=== PATIENT | female | born 1955 | race Caucasian/White ===

== ENCOUNTER 2018-01-20 16:36 | Emergency (ER) | payer MEDICAID ==
[~2018-01-20] VITALS: Ht 157.5 cm; Wt 77.3 kg
[~2018-01-20 16:36] MED LIST: ASPI-1264 PO; ATOR20TA PO; LANTUS SQ; METF500T PO; NICO-687 TP; NO HOME MEDS
[2018-01-20 17:42] LABS: BASOPHILS % (AUTO) 0.4 % (0-1); EOSINOPHILS # (AUTO) 0.3 X10'3 (0-0.9); EOSINOPHILS % (AUTO) 2.7 % (0-6); HEMATOCRIT 48.3 % (35.0-45.0); HEMOGLOBIN 16.6 g/dl (12.0-16.0); LYMPHOCYTES # (AUTO) 2.7 X10'3 (1.1-4.8); LYMPHOCYTES % (AUTO) 27.2 % (21-51); MEAN CORPUSCULAR HEMOGLOBIN 27.3 PG (27.0-31.0); MEAN CORPUSCULAR HGB CONC 34.3 % (33.0-36.5); MEAN CORPUSCULAR VOLUME 79.5 FL (78-98); MEAN PLATELET VOLUME 9.3 FL (7.4-10.4); MONOCYTES # (AUTO) 0.4 X10'3 (0-0.9); MONOCYTES % (AUTO) 4.4 % (2-12); NEUTROPHILS # (AUTO) 6.5 X10'3 (1.8-7.7); NEUTROPHILS % (AUTO) 65.3 % (42-75); PLATELET COUNT 215 X10'3 (140-440); RED BLOOD COUNT 6.08 X10'6 (4.20-5.60); RED CELL DISTRIBUTION WIDTH 15.3 % (11.5-14.5)
[2018-01-20 17:44] LABS: CLARITY,URINE CLEAR (Clear); COLOR,URINE YELLOW (Yellow); GLUCOSE, URINE >=1000 mg/dl (Neg); KETONES,URINE NEGATIVE (Neg); LEUKOCYTE ESTERASE ,URINE SMALL (Neg); NITRITES, URINE NEGATIVE (Neg); OCCULT BLOOD,URINE NEGATIVE (Neg); PH,URINE 6.5 (4.8-8.0); PROTEIN,URINE NEGATIVE (Neg); UROBILINOGEN,URINE 0.2 E.U/dL (0.2-1.0)
[2018-01-20 17:50] LABS: UA COLLECTION TYPE CLN CATCH MIDSTREAM
[2018-01-20 17:52] LABS: BACTERIA,URINE FEW /HPF (Neg); MUCUS STRANDS NONE SEEN /LPF (Neg); RBC,URINE 0-2 /HPF (0-2); SQUAMOUS EPITHELIAL CELL,UR FEW /LPF (FEW)
[2018-01-20 17:53] LABS: PARTIAL THROMBOPLASTIN TIME 26 SECONDS (22-32); PROTHROMBIN TIME 9.9 SECONDS (9.0-12.0)
[2018-01-20 18:02] LABS: ALANINE AMINOTRANSFERASE 24 U/L (12-78); ALBUMIN 3.9 G/DL (3.4-5.0); ALBUMIN/GLOBULIN RATIO 0.8 (1.1-1.5); ALKALINE PHOSPHATASE 139 IU/L (46-116); ANION GAP 12 (8-16); ASPARTATE AMINO TRANSFERASE 10 U/L (10-37); BILIRUBIN,TOTAL 0.5 MG/DL (0.1-1.0); BLOOD UREA NITROGEN 18 MG/DL (7-18); BUN/CREATININE RATIO 23.7 (6.6-38.0); CALCIUM 9.3 MG/DL (8.5-10.1); CHLORIDE 102 MMOL/L (99-107); CREATININE 0.76 MG/DL (0.40-0.90); GLUCOSE 258 MG/DL (70-104); POTASSIUM 3.7 MMOL/L (3.5-5.1); SODIUM 138 MMOL/L (135-145); TOTAL CARBON DIOXIDE 23.8 MMOL/L (24-32); TOTAL PROTEIN 8.6 G/DL (6.4-8.2); eGFR 77 ML/MIN
[2018-01-20] MEDS ORDERED: normal saline 1000ML IV soln IVB ONE (18:10)
[2018-01-20] MEDS ORDERED: CEPH500C5 PO (18:17)
[2018-01-20 19:23] VITALS: BP 133/80
== END 2018-01-20 19:30 | disposition home or self-care (01) ==
LOC: ER 16:37
DX: E86.0 Dehydration (principal); N39.0 Urinary tract infection, site not specified; E11.65 Type 2 diabetes mellitus with hyperglycemia; M79.641 Pain in right hand; I25.2 Old myocardial infarction; Z86.73 Personal history of transient ischemic attack (TIA), and cerebral infarction without residual deficits; F17.210 Nicotine dependence, cigarettes, uncomplicated; Z79.82 Long term (current) use of aspirin; Z79.84 Long term (current) use of oral hypoglycemic drugs; Z79.4 Long term (current) use of insulin; Z79.899 Other long term (current) drug therapy
CPT/HCPCS: 36415; 70450; 71045; 80053; 81001; 85025; 85610; 85730; 87088; 93005; 96360; 99285; J7030

== ENCOUNTER 2019-07-03 10:42 | Inpatient (IN) | payer MEDICAID ==
[~2019-07-03] VITALS: Ht 162.6 cm; Wt 85.0 kg
[2019-07-03 11:23] LABS: BASOPHILS # (AUTO) 0.1 X10'3 (0-0.2); BASOPHILS % (AUTO) 0.9 % (0-1); EOSINOPHILS # (AUTO) 0.1 X10'3 (0-0.9); EOSINOPHILS % (AUTO) 1.9 % (0-6); HEMATOCRIT 44.1 % (35.0-45.0); HEMOGLOBIN 14.8 g/dl (12.0-16.0); LYMPHOCYTES # (AUTO) 1.9 X10'3 (1.1-4.8); LYMPHOCYTES % (AUTO) 27.3 % (21-51); MEAN CORPUSCULAR HEMOGLOBIN 27.5 PG (27.0-31.0); MEAN CORPUSCULAR HGB CONC 33.5 g/dL (33.0-36.5); MEAN CORPUSCULAR VOLUME 82.1 FL (78-98); MONOCYTES # (AUTO) 0.4 X10'3 (0-0.9); MONOCYTES % (AUTO) 5.2 % (2-12); NEUTROPHILS # (AUTO) 4.5 X10'3 (1.8-7.7); NEUTROPHILS % (AUTO) 64.7 % (42-75); PLATELET COUNT 190 X10'3 (140-440); RED BLOOD COUNT 5.38 X10'6 (4.20-5.60); RED CELL DISTRIBUTION WIDTH 14.1 % (11.5-14.5)
[2019-07-03 11:39] LABS: ALANINE AMINOTRANSFERASE 18 U/L (12-78); ALBUMIN 3.5 G/DL (3.4-5.0); ALBUMIN/GLOBULIN RATIO 0.9 (1.1-1.5); ALKALINE PHOSPHATASE 137 IU/L (46-116); ANION GAP 9 (8-16); ASPARTATE AMINO TRANSFERASE 8 U/L (10-37); BILIRUBIN,TOTAL 0.5 MG/DL (0.1-1.0); BLOOD UREA NITROGEN 20 MG/DL (7-18); BUN/CREATININE RATIO 30.8 (6.6-38.0); CHLORIDE 104 MMOL/L (99-107); CREATININE 0.65 MG/DL (0.40-0.90); GLUCOSE 356 MG/DL (70-104); MAGNESIUM 1.7 MG/DL (1.5-2.4); POTASSIUM 4.2 MMOL/L (3.5-5.1); SODIUM 139 MMOL/L (135-145); TOTAL PROTEIN 7.6 G/DL (6.4-8.2); eGFR > 90 ML/MIN
[2019-07-03 11:43] LABS: PARTIAL THROMBOPLASTIN TIME 26 SECONDS (22-32)
[2019-07-03 12:36] LABS: C-REACTIVE PROTEIN 0.15 MG/DL (0.0-0.5)
[2019-07-03] MEDS ORDERED: clindamycin 600mg/D5W 50ml 50 ML IV ONE (13:45)
[2019-07-03] MEDS ORDERED: normal saline 1000ML IV soln IVB ONE (13:45)
[2019-07-03 14:56] LABS: CLARITY,URINE CLOUDY (Clear); COLOR,URINE YELLOW (Yellow); GLUCOSE, URINE >=1000 mg/dl (Neg); KETONES,URINE NEGATIVE (Neg); LEUKOCYTE ESTERASE ,URINE SMALL (Neg); NITRITES, URINE NEGATIVE (Neg); OCCULT BLOOD,URINE TRACE-INTACT (Neg); PROTEIN,URINE NEGATIVE (Neg); UROBILINOGEN,URINE 0.2 E.U/dL (0.2-1.0)
[2019-07-03 15:04] LABS: UA COLLECTION TYPE VOIDED
[2019-07-03 15:05] LABS: SQUAMOUS EPITHELIAL CELL,UR MODERATE /LPF (FEW)
[2019-07-03 15:06] LABS: BACTERIA,URINE 1+ /HPF (Neg); RBC,URINE 0-2 /HPF (0-2); WBC CLUMPS,URINE MODERATE /HPF (NEGATIVE); WBC,URINE 50-100 /HPF (0-4)
[2019-07-03] MEDS ORDERED: NO HOME MEDS (15:07)
[2019-07-03] MEDS ORDERED: potassium CL 10mEq/100ml bag 100 ML IV PRN ×2 (15:45)
[2019-07-03] MEDS ORDERED: ondansetron/PF 4mg/2ml inj IV PRN (15:45)
[2019-07-03] MEDS ORDERED: potassium Cl 20 mEq SR tablet PO PRN ×2 (15:45)
[2019-07-03] MEDS ORDERED: magnesium Cl slow-release 64mg tablet PO PRN (15:45)
[2019-07-03] MEDS ORDERED: acetaminophen 325mg tablet PO PRN (15:45)
[2019-07-03] MEDS ORDERED: magnesium 4gm in 100ml NS 100 ML IV PRN (15:45)
[2019-07-03] MEDS ORDERED: magnesium 2GM in 50ml NS 50 ML IV PRN (15:45)
[2019-07-03] MEDS ORDERED: cyclobenzaprine 10mg tablet PO SCH (16:00)
--- NOTE | 2019-07-03 16:16 | NUR ---
REC'D CALL FROM DR CABRERA REQUESTING CM AND SS ASSESSMENT OF PATIENT IN ED. PATIENT HAS BEEN UNABLE TO CARE FOR SELF AND HAS WOUND TO HAND WHICH WILL REQUIRES WOUND CARE AND ABX. CM AND SS IN TO SPEAK WITH PATIENT. DAUGHTER, PATRIA, IS AT BEDSIDE. PER PATRIA, PATIENT IS LIVING WITH HER SON AND DISABLED DAUGHTER. SHE HAD BEEN IN LTC AT [facility] IN THE PAST BUT DECIDED IT WAS NOT FOR HER AND LEFT ABOUT 2 YEARS AGO. SHE HAS LIVED WITH VARIOUS FAMILY MEMBERS. HOWEVER, IT HAS BEEN INCREASINLY DIFFICULT TO CARE FOR HERSELF. PATIENT DOES NOT WANT LTC. SHE IS AGREEABLE TO SNF FOR SHORT TERM CARE WHILE HER FAMILY MAKES ARRANGEMENTS SUCH ESTABLISHING A PCP AT [facility] AND [facility]. [facility] PAPERWORK HAS ALREADY BEEN COMPLETED AND THEY HAVE A FRIEND, VANESSA, WHO IS WILLING TO START [facility] CAREGIVER AT ANY TIME. SS SPOKE WITH VANESSA ON THE PHONE AND CONFIRMED. SS TO ASSIST WITH [facility] PAPERWORK SO FAMILY WILL HAVE CAREGIVER TO ASSIST. CM SENT REFERRAL TO [facility] FOR STC WITH D/C PLAN HOME WITH SON AND [facility] CAREGIVER. DISCUSSED WITH PATIENT/DAUGHTER THAT IF STC PLACEMENT WAS NOT FOUND THAT PATIENT MUST RETURN HOME WITH FAMILY WITH COMMUNITY RESOURCES WHEN STABLE. INFORMED DR CABRERA. INFORMED HOSPITALIST, DR HUFF, OF D/C PLANS. WILL CONTINUE TO ASSIST WITH D/C NEEDS ALONG WITH [employer] IRRIGATOR.
[2019-07-03] MEDS: normal saline 1000ml 1,000 ML IV SCH (16:47)
--- NOTE | 2019-07-03 17:19 | NUR ---
I have received report from SELVIN Gama and had the opportunity to ask questions and assume patient care.
[2019-07-03 17:50] VITALS: BP 188/88
--- NOTE | 2019-07-03 18:09 | NUR ---
Page to Dr Harris MESSAGE: [facility] [id number] re new admit Chaney 353 BP 188/88 HR 119
--- NOTE | 2019-07-03 18:15 | NUR ---
Patient in room [facility]. I have received report from Susi MONTALVO and had the opportunity to ask questions and assume patient care.
--- NOTE | 2019-07-03 18:19 | NUR ---
Problems reprioritized. Patient report given, questions answered & plan of care reviewed with SELVIN Lowe.
[2019-07-03 20:00] VITALS: BP 169/82
[2019-07-03] MEDS: clindamycin 300mg/D5W 50mL 50 ML IV SCH (21:32)
[2019-07-03] MEDS ORDERED: dextrose 50%-water 50ml dispensing syringe IV PRN ×2 (22:55)
[2019-07-03] MEDS ORDERED: MESSAGE TO PHARMACY PO ONE (22:55)
[2019-07-03] MEDS ORDERED: glucagon, human recombinant 1mg kit SUBCUT PRN (22:55)
[2019-07-03] MEDS ORDERED: dextrose ORAL solution 15 GM/59 ML bottle PO PRN (22:55)
[2019-07-03] MEDS: insulin Lispro (HumaLOG) vial - multi-dose SQ SCH (23:59)
[2019-07-04] VITALS: BP 127/67
[2019-07-04] MEDS ORDERED: insulin glargine (Lantus) pen - multi-dose SQ ONE ×2
[2019-07-04] MEDS: clindamycin 300mg/D5W 50mL 50 ML IV SCH ×4 (02:24→19:49)
[2019-07-04 06:18] LABS: BASOPHILS % (AUTO) 0.5 % (0-1); EOSINOPHILS # (AUTO) 0.1 X10'3 (0-0.9); EOSINOPHILS % (AUTO) 1.2 % (0-6); HEMATOCRIT 40.7 % (35.0-45.0); HEMOGLOBIN 13.9 g/dl (12.0-16.0); LYMPHOCYTES # (AUTO) 2.3 X10'3 (1.1-4.8); LYMPHOCYTES % (AUTO) 26.3 % (21-51); MEAN CORPUSCULAR HGB CONC 34.2 g/dL (33.0-36.5); MEAN CORPUSCULAR VOLUME 81.7 FL (78-98); MEAN PLATELET VOLUME 9.3 FL (7.4-10.4); MONOCYTES # (AUTO) 0.6 X10'3 (0-0.9); MONOCYTES % (AUTO) 6.5 % (2-12); NEUTROPHILS # (AUTO) 5.8 X10'3 (1.8-7.7); NEUTROPHILS % (AUTO) 65.5 % (42-75); PLATELET COUNT 185 X10'3 (140-440); RED BLOOD COUNT 4.98 X10'6 (4.20-5.60); WHITE BLOOD COUNT 8.9 X10'3 (4.5-11.0)
--- NOTE | 2019-07-04 06:26 | NUR ---
Problems reprioritized. Patient report given, questions answered & plan of care reviewed with Kim MONTALVO.
[2019-07-04 06:49] LABS: ANION GAP 10 (8-16); BLOOD UREA NITROGEN 16 MG/DL (7-18); BUN/CREATININE RATIO 30.8 (6.6-38.0); CALCIUM 8.6 MG/DL (8.5-10.1); CHLORIDE 107 MMOL/L (99-107); CREATININE 0.52 MG/DL (0.40-0.90); GLUCOSE 198 MG/DL (70-104); MAGNESIUM 1.9 MG/DL (1.5-2.4); POTASSIUM 3.5 MMOL/L (3.5-5.1); SODIUM 140 MMOL/L (135-145); eGFR > 90 ML/MIN
[2019-07-04 07:00] VITALS: BP 114/61
[2019-07-04 07:28] LABS: HEMOGLOBIN A1C 9.7 % (4.5-6.2)
[2019-07-04] MEDS: K and/or MAG REPLACEMENT MC SCH (08:00)
[2019-07-04] MEDS: cyclobenzaprine 10mg tablet PO SCH (08:38)
[2019-07-04 11:00] VITALS: BP 113/62
[2019-07-04] MEDS: CefTRIAXone/D5W-Rocephin 1gm 50 ML IV SCH (11:16)
[2019-07-04] MEDS: insulin Lispro (HumaLOG) vial - multi-dose SQ SCH ×2 (13:58→18:50)
--- NOTE | 2019-07-04 16:30 | NUR ---
DM consult: Pt with A1c 9.7 admit with left hand cellulitis/wound and UTI. Pt seen at bedside reports going to the [facility] and states she hasn't taken DM meds x 1 month or been checking BG levels d/t losing glucometer. Pt states she previously had a adobe cq developer that would cook DM friendly meals however is now under the care of her family who does not prepare DM friendly meals. Noted that pt is a poor historian per H&P. Pt states she will be able to get her DM medications and a meter after hospital discharge. Pt provided with written and verbal protein and DM educations with referral to outpatient DM class with CDEs. Encouraged pt to better manage DM with rx medications, diet, and routine BG checks. Pt verbalized understanding of education. RD contact information provided. Pt denies any food allergies and reports difficulty chewing d/t missing teeth and difficulty cutting food given wound on hand. Pt agreeable to chop all food and requests double eggs at breakfast, d/w dietary. Pt reports LBM four days ago, d/w dietary to send power pudding with dinner tonrichie. Will continue to follow. Addendum: 07/04/19 at [address] Amended: Links added.
--- NOTE | 2019-07-04 18:13 | NUR ---
Problems reprioritized. Patient report given, questions answered & plan of care reviewed with LIO MONTALVO.
--- NOTE | 2019-07-04 18:20 | NUR ---
Patient in room [facility] 353. I have received report from Kim MONTALVO and had the opportunity to ask questions and assume patient care.
[2019-07-04] MEDS: lactobacillus rhamnosus 10,000 MMU CELLS/CAPSULE PO SCH (19:49)
[2019-07-04] MEDS: insulin glargine (Lantus) pen - multi-dose SQ SCH (21:01)
[2019-07-05] VITALS: BP 128/64
[2019-07-05] MEDS: clindamycin 300mg/D5W 50mL 50 ML IV SCH ×4 (01:41→20:10)
--- NOTE | 2019-07-05 06:12 | NUR ---
Problems reprioritized. Patient report given, questions answered & plan of care reviewed with Kim MONTALVO.
[2019-07-05 06:24] LABS: BASOPHILS % (AUTO) 0.5 % (0-1); EOSINOPHILS # (AUTO) 0.2 X10'3 (0-0.9); HEMATOCRIT 39.2 % (35.0-45.0); HEMOGLOBIN 13.6 g/dl (12.0-16.0); LYMPHOCYTES # (AUTO) 2.4 X10'3 (1.1-4.8); LYMPHOCYTES % (AUTO) 35.4 % (21-51); MEAN CORPUSCULAR HEMOGLOBIN 28.1 PG (27.0-31.0); MEAN CORPUSCULAR HGB CONC 34.7 g/dL (33.0-36.5); MEAN PLATELET VOLUME 8.9 FL (7.4-10.4); MONOCYTES # (AUTO) 0.5 X10'3 (0-0.9); MONOCYTES % (AUTO) 7.8 % (2-12); NEUTROPHILS # (AUTO) 3.6 X10'3 (1.8-7.7); NEUTROPHILS % (AUTO) 53.3 % (42-75); PLATELET COUNT 174 X10'3 (140-440); RED BLOOD COUNT 4.85 X10'6 (4.20-5.60); WHITE BLOOD COUNT 6.7 X10'3 (4.5-11.0)
[2019-07-05 07:00] VITALS: BP 151/68
[2019-07-05 07:05] LABS: ALBUMIN 2.8 G/DL (3.4-5.0); ANION GAP 11 (8-16); BLOOD UREA NITROGEN 22 MG/DL (7-18); BUN/CREATININE RATIO 33.8 (6.6-38.0); CALCIUM 8.4 MG/DL (8.5-10.1); CHLORIDE 106 MMOL/L (99-107); CREATININE 0.65 MG/DL (0.40-0.90); GLUCOSE 236 MG/DL (70-104); MAGNESIUM 1.6 MG/DL (1.5-2.4); SODIUM 140 MMOL/L (135-145); TOTAL CARBON DIOXIDE 23.3 MMOL/L (24-32); eGFR > 90 ML/MIN
[2019-07-05] MEDS: K and/or MAG REPLACEMENT MC SCH (07:13)
[2019-07-05] MEDS: lactobacillus rhamnosus 10,000 MMU CELLS/CAPSULE PO SCH ×2 (07:21→20:14)
[2019-07-05] MEDS: cyclobenzaprine 10mg tablet PO SCH (07:22)
[2019-07-05] MEDS: CefTRIAXone/D5W-Rocephin 1gm 50 ML IV SCH (09:03)
[2019-07-05] MEDS: insulin Lispro (HumaLOG) vial - multi-dose SQ SCH ×3 (10:02→20:14)
--- NOTE | 2019-07-05 11:27 | NUR ---
Malnutrition consult: Patient with documented wt hx of 77 kg 01/20/18 which was pt stated, current documented wt is 85 kg which is also pt stated. Pt currently with 100% PO intake on CHO controlled diet meeting nutrient needs. Pt with no significant decrease in muscle strength, edema, or visible fat/muscle wasting. Pt currently does not meet criteria for malnutrition. Will continue to follow. Addendum: 07/05/19 at [address] Amended: Links added.
[2019-07-05] MEDS: normal saline 1000ml 1,000 ML IV SCH (17:46)
--- NOTE | 2019-07-05 18:20 | NUR ---
Patient in room [facility] 353. I have received report from Kim MONTALVO and had the opportunity to ask questions and assume patient care.
[2019-07-05 20:00] VITALS: BP 143/74
[2019-07-05] MEDS: insulin glargine (Lantus) pen - multi-dose SQ SCH (21:55)
[2019-07-06] VITALS: BP 92/41
[2019-07-06] MEDS: clindamycin 300mg/D5W 50mL 50 ML IV SCH ×4 (02:46→19:11)
[2019-07-06 06:53] LABS: BASOPHILS % (AUTO) 0.7 % (0-1); EOSINOPHILS # (AUTO) 0.2 X10'3 (0-0.9); EOSINOPHILS % (AUTO) 3.9 % (0-6); HEMOGLOBIN 13.8 g/dl (12.0-16.0); LYMPHOCYTES # (AUTO) 2.4 X10'3 (1.1-4.8); LYMPHOCYTES % (AUTO) 40.7 % (21-51); MEAN CORPUSCULAR HEMOGLOBIN 27.6 PG (27.0-31.0); MEAN CORPUSCULAR HGB CONC 33.7 g/dL (33.0-36.5); MEAN CORPUSCULAR VOLUME 81.9 FL (78-98); MEAN PLATELET VOLUME 8.9 FL (7.4-10.4); MONOCYTES # (AUTO) 0.4 X10'3 (0-0.9); MONOCYTES % (AUTO) 7.5 % (2-12); NEUTROPHILS # (AUTO) 2.8 X10'3 (1.8-7.7); NEUTROPHILS % (AUTO) 47.2 % (42-75); PLATELET COUNT 165 X10'3 (140-440); RED BLOOD COUNT 5.01 X10'6 (4.20-5.60); RED CELL DISTRIBUTION WIDTH 13.9 % (11.5-14.5)
--- NOTE | 2019-07-06 06:54 | NUR ---
Patient in room [facility] 353. I have received report from Mynor MONTALVO and had the opportunity to ask questions and assume patient care.
[2019-07-06 07:08] LABS: ALBUMIN 2.8 G/DL (3.4-5.0); ANION GAP 10 (8-16); BLOOD UREA NITROGEN 20 MG/DL (7-18); BUN/CREATININE RATIO 33.9 (6.6-38.0); CALCIUM 8.4 MG/DL (8.5-10.1); CHLORIDE 110 MMOL/L (99-107); CREATININE 0.59 MG/DL (0.40-0.90); GLUCOSE 110 MG/DL (70-104); MAGNESIUM 1.7 MG/DL (1.5-2.4); SODIUM 144 MMOL/L (135-145); TOTAL CARBON DIOXIDE 23.6 MMOL/L (24-32); eGFR > 90 ML/MIN
[2019-07-06 07:26] VITALS: BP 121/63
--- NOTE | 2019-07-06 07:30 | NUR ---
Patient in room [facility] 353. I have received report from LIO MONTALVO and had the opportunity to ask questions and assume patient care.
[2019-07-06] MEDS: K and/or MAG REPLACEMENT MC SCH (08:00)
[2019-07-06] MEDS: cyclobenzaprine 10mg tablet PO SCH (08:51)
[2019-07-06] MEDS: lactobacillus rhamnosus 10,000 MMU CELLS/CAPSULE PO SCH ×2 (08:51→19:11)
[2019-07-06] MEDS: insulin Lispro (HumaLOG) vial - multi-dose SQ SCH ×2 (09:12→13:44)
[2019-07-06] MEDS: CefTRIAXone/D5W-Rocephin 1gm 50 ML IV SCH (09:43)
[2019-07-06 11:00] VITALS: BP 116/54
[2019-07-06] MEDS: dextrose ORAL solution 15 GM/59 ML bottle PO PRN ×2 (17:20→17:37)
--- NOTE | 2019-07-06 17:46 | NUR ---
patient up with PT ambulated x2. Accuchecks ac/hs. 0700 104, 1200 166 patient increased to level 5. 1700accucheck 57. patient treated as per protocol. Seen by Dr Castro. sitting up in chair at time of report. Picture taken of left hand, see chart.
--- NOTE | 2019-07-06 18:19 | NUR ---
Problems reprioritized. Patient report given, questions answered & plan of care reviewed with Mynor MONTALVO.
--- NOTE | 2019-07-06 18:25 | NUR ---
Patient in room [facility] 353. I have received report from Jo Ann MONTALVO and had the opportunity to ask questions and assume patient care.
[2019-07-06 20:00] VITALS: BP 154/67
[2019-07-06] MEDS: nystatin 15 GM powder TP SCH (21:18)
[2019-07-06] MEDS: insulin glargine (Lantus) pen - multi-dose SQ SCH (21:24)
[2019-07-07] VITALS: BP 156/72
[2019-07-07] MEDS: clindamycin 300mg/D5W 50mL 50 ML IV SCH ×3 (02:05→14:26)
[2019-07-07 05:58] LABS: ALBUMIN 2.8 G/DL (3.4-5.0); ANION GAP 8 (8-16); BLOOD UREA NITROGEN 16 MG/DL (7-18); BUN/CREATININE RATIO 31.4 (6.6-38.0); CHLORIDE 110 MMOL/L (99-107); CREATININE 0.51 MG/DL (0.40-0.90); GLUCOSE 153 MG/DL (70-104); MAGNESIUM 1.7 MG/DL (1.5-2.4); POTASSIUM 3.9 MMOL/L (3.5-5.1); SODIUM 141 MMOL/L (135-145); TOTAL CARBON DIOXIDE 23.3 MMOL/L (24-32); eGFR > 90 ML/MIN
[2019-07-07 06:09] LABS: BASOPHILS % (AUTO) 0.6 % (0-1); EOSINOPHILS # (AUTO) 0.3 X10'3 (0-0.9); EOSINOPHILS % (AUTO) 3.9 % (0-6); HEMATOCRIT 39.4 % (35.0-45.0); HEMOGLOBIN 13.5 g/dl (12.0-16.0); LYMPHOCYTES # (AUTO) 2.8 X10'3 (1.1-4.8); LYMPHOCYTES % (AUTO) 42.5 % (21-51); MEAN CORPUSCULAR HEMOGLOBIN 27.8 PG (27.0-31.0); MEAN CORPUSCULAR HGB CONC 34.2 g/dL (33.0-36.5); MEAN CORPUSCULAR VOLUME 81.2 FL (78-98); MONOCYTES # (AUTO) 0.5 X10'3 (0-0.9); MONOCYTES % (AUTO) 6.9 % (2-12); NEUTROPHILS % (AUTO) 46.1 % (42-75); PLATELET COUNT 172 X10'3 (140-440); RED BLOOD COUNT 4.85 X10'6 (4.20-5.60); RED CELL DISTRIBUTION WIDTH 13.9 % (11.5-14.5); WHITE BLOOD COUNT 6.5 X10'3 (4.5-11.0)
--- NOTE | 2019-07-07 06:28 | NUR ---
Problems reprioritized. Patient report given, questions answered & plan of care reviewed with Jeanie MONTALVO and Jo Ann MONTALVO.
[2019-07-07 07:00] VITALS: BP 149/71
[2019-07-07] MEDS: lactobacillus rhamnosus 10,000 MMU CELLS/CAPSULE PO SCH ×2 (07:03→19:37)
[2019-07-07] MEDS: cyclobenzaprine 10mg tablet PO SCH (07:04)
[2019-07-07] MEDS: nystatin 15 GM powder TP SCH ×3 (07:05→21:00)
[2019-07-07] MEDS: K and/or MAG REPLACEMENT MC SCH (07:15)
[2019-07-07] MEDS: insulin Lispro (HumaLOG) vial - multi-dose SQ SCH ×3 (08:55→19:10)
[2019-07-07 11:00] VITALS: BP 135/65
[2019-07-07] MEDS ORDERED: PRAV10TA39 PO (12:46)
[2019-07-07] MEDS ORDERED: LISI-604 PO (12:46)
[2019-07-07] MEDS ORDERED: METF-950 PO (12:46)
[2019-07-07] MEDS ORDERED: ASPI-1265 PO (12:46)
--- NOTE | 2019-07-07 16:43 | NUR ---
patient seen by DR Castro is for discharge, but unable to procure ride home as son works till [address] castro aware, see social services designee Nisa's note.patient appears stable.
[2019-07-07] MEDS ORDERED: LANTUS SQ (16:52)
[2019-07-07 18:30] VITALS: BP 169/76
--- NOTE | 2019-07-07 18:41 | NUR ---
Problems reprioritized. Patient report given, questions answered & plan of care reviewed with jose alva.
[2019-07-07] MEDS: insulin glargine (Lantus) pen - multi-dose SQ SCH (21:02)
[2019-07-07 23:00] VITALS: BP 132/57
[2019-07-08 05:35] LABS: BASOPHILS # (AUTO) 0.1 X10'3 (0-0.2); BASOPHILS % (AUTO) 0.8 % (0-1); EOSINOPHILS # (AUTO) 0.3 X10'3 (0-0.9); HEMATOCRIT 39.7 % (35.0-45.0); HEMOGLOBIN 13.6 g/dl (12.0-16.0); LYMPHOCYTES # (AUTO) 2.8 X10'3 (1.1-4.8); MEAN CORPUSCULAR HGB CONC 34.2 g/dL (33.0-36.5); MONOCYTES # (AUTO) 0.5 X10'3 (0-0.9); MONOCYTES % (AUTO) 7.9 % (2-12); NEUTROPHILS # (AUTO) 3.1 X10'3 (1.8-7.7); NEUTROPHILS % (AUTO) 45.3 % (42-75); PLATELET COUNT 172 X10'3 (140-440); RED BLOOD COUNT 4.84 X10'6 (4.20-5.60); RED CELL DISTRIBUTION WIDTH 14.3 % (11.5-14.5); WHITE BLOOD COUNT 6.8 X10'3 (4.5-11.0)
[2019-07-08 05:44] LABS: ALBUMIN 2.8 G/DL (3.4-5.0); ANION GAP 9 (8-16); BLOOD UREA NITROGEN 21 MG/DL (7-18); BUN/CREATININE RATIO 30.4 (6.6-38.0); CALCIUM 8.4 MG/DL (8.5-10.1); CHLORIDE 107 MMOL/L (99-107); CREATININE 0.69 MG/DL (0.40-0.90); GLUCOSE 114 MG/DL (70-104); MAGNESIUM 1.7 MG/DL (1.5-2.4); POTASSIUM 4.1 MMOL/L (3.5-5.1); SODIUM 141 MMOL/L (135-145); TOTAL CARBON DIOXIDE 24.8 MMOL/L (24-32); eGFR 86 ML/MIN
--- NOTE | 2019-07-08 06:25 | NUR ---
Problems reprioritized. Patient report given, questions answered & plan of care reviewed with FANNY. Addendum: 07/08/19 at 0625 by Gonzales Rutherford RN Amended: Links added.
[2019-07-08] MEDS: cyclobenzaprine 10mg tablet PO SCH (07:12)
[2019-07-08] MEDS: lactobacillus rhamnosus 10,000 MMU CELLS/CAPSULE PO SCH ×2 (07:12→19:54)
[2019-07-08] MEDS: nystatin 15 GM powder TP SCH ×3 (07:13→19:54)
[2019-07-08] MEDS: K and/or MAG REPLACEMENT MC SCH (07:14)
[2019-07-08 07:15] VITALS: BP 147/69
[2019-07-08] MEDS: insulin Lispro (HumaLOG) vial - multi-dose SQ SCH ×3 (08:21→18:30)
[2019-07-08 11:12] VITALS: BP 141/70
--- NOTE | 2019-07-08 15:33 | NUR ---
Initial: Pt admit with cellulitis/wound to left hand and UTI. Pt documented with 75-100% PO intake on CHO controlled diet meeting nutrient needs. LB 07/07. Pt pending discharge. Will continue to follow. Recommendations: 1) Continue CHO controlled diet 2) Chop all TID 3) Double eggs at breakfast 4) Routine bowel care 5) Wt per rx Addendum: 07/08/19 at [address] Amended: Links added.
--- NOTE | 2019-07-08 18:27 | NUR ---
Problems reprioritized. Patient report given, questions answered & plan of care reviewed with SELVIN King.
--- NOTE | 2019-07-08 18:35 | NUR ---
Patient in room [facility] 350. I have received report from Analilia MONTALVO and had the opportunity to ask questions and assume patient care.
[2019-07-08 19:00] VITALS: BP 152/82
[2019-07-08] MEDS ORDERED: HYDROcodone/acetaminophen 5mg/325mg tablet PO PRN (20:25)
[2019-07-08] MEDS: dextrose ORAL solution 15 GM/59 ML bottle PO PRN (20:45)
[2019-07-08] MEDS: insulin glargine (Lantus) pen - multi-dose SQ SCH (21:00)
[2019-07-09] VITALS: BP 103/65
--- NOTE | 2019-07-09 06:30 | NUR ---
Problems reprioritized. Patient report given, questions answered & plan of care reviewed with Analilia MONTALVO.
[2019-07-09 07:25] VITALS: BP 116/55
[2019-07-09] MEDS: K and/or MAG REPLACEMENT MC SCH (08:00)
[2019-07-09] MEDS: lactobacillus rhamnosus 10,000 MMU CELLS/CAPSULE PO SCH ×2 (08:29→19:21)
[2019-07-09] MEDS: insulin Lispro (HumaLOG) vial - multi-dose SQ SCH ×3 (08:29→18:37)
[2019-07-09] MEDS: cyclobenzaprine 10mg tablet PO SCH (08:31)
[2019-07-09] MEDS: nystatin 15 GM powder TP SCH ×3 (08:32→20:52)
[2019-07-09 11:22] VITALS: BP 136/66
[2019-07-09 18:00] VITALS: BP 122/74
--- NOTE | 2019-07-09 18:11 | NUR ---
Received report from SELVIN Plascencia. Patient is awake and alert on room air, in no apparent distress. Call light and items of frequent use within reach. Will continue to monitor.
--- NOTE | 2019-07-09 18:18 | NUR ---
Problems reprioritized. Patient report given, questions answered & plan of care reviewed with SELVIN Amador.
[2019-07-09] MEDS: insulin glargine (Lantus) pen - multi-dose SQ SCH (20:56)
[2019-07-10] VITALS: BP 133/73
--- NOTE | 2019-07-10 06:12 | NUR ---
Problems reprioritized. Patient report given, questions answered & plan of care reviewed with SELVIN Alvarez.
[2019-07-10 07:00] VITALS: BP 117/67
[2019-07-10] MEDS: K and/or MAG REPLACEMENT MC SCH (08:00)
[2019-07-10] MEDS: nystatin 15 GM powder TP SCH ×2 (08:00→13:50)
[2019-07-10] MEDS: lactobacillus rhamnosus 10,000 MMU CELLS/CAPSULE PO SCH (08:26)
[2019-07-10] MEDS: cyclobenzaprine 10mg tablet PO SCH (08:27)
[2019-07-10] MEDS: insulin Lispro (HumaLOG) vial - multi-dose SQ SCH ×2 (08:32→13:48)
[2019-07-10 11:00] VITALS: BP 146/67
--- NOTE | 2019-07-10 13:05 | NUR ---
PLACED COMMODE NEAR PT, PT WAS ABLE TO GET HERSELF TO COMMODE WITH VERY MIN ASSIST.
--- NOTE | 2019-07-10 18:25 | NUR ---
Problems reprioritized. Patient report given, questions answered & plan of care reviewed with CHYNA MONTALVO.
--- NOTE | 2019-07-10 18:30 | NUR ---
Patient in room [facility] 348. I have received report from SELVIN Alvarez and had the opportunity to ask questions and assume patient care.
--- NOTE | 2019-07-10 19:45 | NUR ---
I went over patients dc instructions with patient and both of her children. Patient was wheeled out by [facility] at 1930 with family and her belongings. Patient was not in any distress. I agree with AM nurses assessment.
== END 2019-07-10 19:30 | disposition home health service (06) | DRG 383 ==
LOC: ER 10:42 → SUR 3N 18:19 → CMPBEDREQ 07-07 18:05 → SUR 3N 07-08 18:29
PROVIDERS: ADMIT Internal Medicine; ATTEND Family Medicine
DX: L03.114 Cellulitis of left upper limb (principal); E10.65 Type 1 diabetes mellitus with hyperglycemia; I69.354 Hemiplegia and hemiparesis following cerebral infarction affecting left non-dominant side; E78.5 Hyperlipidemia, unspecified; L03.012 Cellulitis of left finger; M24.542 Contracture, left hand; N39.0 Urinary tract infection, site not specified; Z79.4 Long term (current) use of insulin; Z82.3 Family history of stroke; Z82.41 Family history of sudden cardiac death; I25.2 Old myocardial infarction; Z82.49 Family history of ischemic heart disease and other diseases of the circulatory system; Z83.3 Family history of diabetes mellitus; Z87.891 Personal history of nicotine dependence; Z91.14 Patient's other noncompliance with medication regimen; Z83.42 Family history of familial hypercholesterolemia
CPT/HCPCS: 36415; 71045; 73130; 80048; 80053; 81001; 82948; 83036; 83605; 83735; 84145; 85025; 85610; 85651; 85730; 86140; 87040; 87081; 87088; 96374; 97110; 97112; 97116; 97162; 97530; 97535; 99285; G0378; J0696; J1815; J3490; J7030

== ENCOUNTER 2019-08-04 11:39 | Emergency (ER) | payer MEDICAID ==
[~2019-08-04] VITALS: Ht 157.5 cm; Wt 77.3 kg
[~2019-08-04 11:39] MED LIST changes: -ASPI-1264 PO; +ASPI-1265 PO; -ATOR20TA PO; +LISI-604 PO; -METF500T PO; -NICO-687 TP; -NO HOME MEDS; +PRAV10TA39 PO
--- NOTE | 2019-08-04 12:34 | NUR ---
CALLED [facility], INFORMED THEM OF THE SITUATION. WILL COMPLETE THE FORM AND FAX THE PAPER OVER TO [phone]
--- NOTE | 2019-08-04 12:48 | NUR ---
[facility] REPORT COMPLETED AND FAXED TO JAMES AT [facility]
--- NOTE | 2019-08-04 13:43 | NUR ---
DAUGHTER PATRIA [phone] CALLED, LINE CUT OFF. [place] AND "HAS BEEN WORKING WITH A DIRECTOR OUTPATIENT SERVICES AT THE [facility]", DAUGHTER STATED SHE KNEW THAT HER "MOTHER'S LEG HURT"
[2019-08-04 13:54] VITALS: BP 133/55
--- NOTE | 2019-08-04 14:05 | NUR ---
PATRIA DAUGHTER CALLED BACK. BROTHER JENNIE LIVES WITH PATIENT. JENNIE CELL [phone]. PATRIA STATES THAT JENNIE USUALLY DOES NOT ANSWER HIS PHONE, JUST "[place]".
== END 2019-08-04 15:13 | disposition home or self-care (01) ==
LOC: ER 11:39
DX: M79.652 Pain in left thigh (principal); I25.2 Old myocardial infarction; E11.9 Type 2 diabetes mellitus without complications; Z86.73 Personal history of transient ischemic attack (TIA), and cerebral infarction without residual deficits; Z79.82 Long term (current) use of aspirin; Z79.4 Long term (current) use of insulin; W18.30XA Fall on same level, unspecified, initial encounter; Y93.89 Activity, other specified; Y92.098 Other place in other non-institutional residence as the place of occurrence of the external cause; Y99.9 Unspecified external cause status
CPT/HCPCS: 73552; 99284